=== PATIENT | female | born 1980 | race Caucasian/White ===

== ENCOUNTER 2017-08-22 19:31 | Emergency (ER) | payer OTHER, SELFPAY ==
[2017-08-22 19:32] VITALS: BP 138/72; PULSE 59; RESP 16; TEMP 36.7; O2SAT 100; BMI 39.6
--- NOTE | 2017-08-22 20:59 | US_ITS ---
STUDY: VENOUS DOPPLER ULTRASOUND - LEFT LOWER EXTREMITY REASON FOR EXAM: Female, 37 years old. Swelling TECHNIQUE: Ultrasound evaluation of the deep vein system to include miller-scale imaging and compression was performed. Miller-scale imaging and Doppler sonographic evaluation, including duplex spectral analysis and qualitative color flow sonography, was performed. COMPARISON: None. FINDINGS: Common Femoral Vein: Normal compression, spontaneity and augmentation. Normal color Doppler. Common Femoral Vein/Greater Saphenous Junction: Normal compression. Femoral Proximal: Normal compression. Femoral Middle: Normal compression, spontaneity and augmentation. Normal color Doppler. Femoral Distal: Normal compression. Popliteal Vein: Normal compression, spontaneity and augmentation. Normal color Doppler. Posterior Tibial Vein: Normal compression. Peroneal Vein: Normal compression. US/Venous Duplex Imag/Limited/Uni IMPRESSION: Normal venous Doppler ultrasound of the lower extremity. Electronically Signed: Ronald Jade DO at 21:43 EDT Tel [phone], Service support ,
--- NOTE | 2017-08-22 22:13 | ED.VISSUMM ---
- ER Visit Summary Date of Service: 08/22/17 Chief Complaint: Left lower extremity pain History of Present Illness: The patient is a 37 F presenting with left lower extremity pain. This has been ongoing for the past week. She went to urgent care today and they sent her to the ED to rule out DVT. She states she has had a burning tingling sensation in her left lower extremity. Denies recent injury. No recent travel. No history of DVT/PE. No history of cancer. She did have a varicose vein surgery in March per Dr. Rosen. She denies fever. Denies chest pain or shortness of breath. Denies other complaints. Physical Examination: Vitals are stable. Patient is afebrile. Alert no acute distress. HEENT exam is unremarkable. Neck is supple. Lungs are clear and equal bilaterally. Heart is regular rate and rhythm. Abdomen is soft nontender nondistended. Extremities mild left ankle swelling with tenderness, no pain with range of motion of ankle joint. Normal DP pulse. Mild calf tenderness. No erythema or warmth Skin is warm and dry. No focal neurologic deficit. Remainder of exam is unremarkable. Emergency Department Course and Treatment: Venous Doppler shows no evidence of DVT. She is advised to ice and elevate. Advised to follow-up with primary care physician. Advised return to ED if worsening complaints. Disposition: Discharge home Impression: LLE pain This note was generated with [employer] dictation software. It may contain incorrect words, spelling, and punctuation that were not noted in review of the chart prior to signing ED Disposition - Plan for ED Patient: Chief Complaint: Lower Extremity Injury Referrals: Nir Jimenez [Primary Care Provider] -
--- NOTE | 2017-08-22 22:17 | ED.DEP ---
ED Disposition - Plan for ED Patient: Chief Complaint: Lower Extremity Injury Instructions: ED Muscle Pain Leg Cramps Referrals: Nir Jimenez [Primary Care Provider] - Hernandez Rosen MD [STAFF PHYSICIAN] -
[2017-08-22 22:23] VITALS: BP 127/61; PULSE 76; O2SAT 97
== END 2017-08-22 22:24 | disposition home or self-care (01) ==
LOC: ED 20:57
PROVIDERS: Emergency Provider Emergency Medicine; Family Provider Family Medicine; PCP Family Medicine
DX: M79.662 Pain in left lower leg (principal); R20.2 Paresthesia of skin; M79.89 Other specified soft tissue disorders; Z79.899 Other long term (current) drug therapy
CPT/HCPCS: 93971; 99282

== ENCOUNTER → 2017-10-03 09:02 | Outpatient (CLI) | payer OTHER, SELFPAY ==
--- NOTE | 2017-10-03 09:06 | VDLE_ITS ---
Reason For Study: Swelling RIGHT LEFT CFV is compressible, spontaneous, phasic, FV is compressible, spontaneous, phasic, competent and demonstrates normal competent and demonstrates normal augmentation. augmentation. FV is compressible, spontaneous, phasic, POP V is compressible, spontaneous, phasic, competent and demonstrates normal competent and demonstrates normal augmentation. augmentation. POP V is compressible, spontaneous, phasic, T/P Trunk is compressible. competent and demonstrates normal PTV is compressible. augmentation. LT PerV is compressible. T/P Trunk is compressible. Lt CFV is compressible, spontaneous, phasic PTV is compressible. and Incompetent RT PerV is compressible. Rt SFJ is Competent Lt GSV, Lt SSV, and Lt ASV are occluded s/p EVLA. Rt GSV is Incompetent with reflux greater than 0.5 sec and a diameter of 0.49cm x 0.46cm in the thigh and 0.20cm x 0.18cm in the calf Rt SSV is is Incompetent with reflux greater than 0.5 sec and a diameter of 0.33cm x 0.27cm. Procedure Exam performed in department. A preliminary report was called and/or faxed to Dr. Rosen. Interpretation Summary Deep veins of the lower extremities are bilaterally patent and compressible segmentally. There is no evidence of deep vein thrombosis on either side. Valvular competence appears intact within the proximal deep venous system on the right . The left common femoral vein is incompetent. The left femoral vein and popliteal vein are competent. The right sapheno-femoral junction is competent . The right greater saphenous vein appears segmentally incompetent. The right small saphenous vein is patent and incompetent. The left greater saphenous vein, small saphenous vein, and accessory saphenous vein are occluded, consistent with a prior endothermal ablation procedure. Ordering Physician: Hernandez Rosen Referring Physician: Nir Jimenez Performed By: Yadira Clark, LEXY, RVT
== END ==
PROVIDERS: Family Provider Family Medicine; PCP Family Medicine; Visit Provider Surgery
DX: M79.89 Other specified soft tissue disorders (principal); I87.2 Venous insufficiency (chronic) (peripheral); I83.10 Varicose veins of unspecified lower extremity with inflammation
CPT/HCPCS: 93970

== ENCOUNTER → 2018-12-14 | Outpatient (CLI) | payer BC, SELFPAY ==
[2018-12-19 17:01] LABS: HPV Reflexed? NOT INDICATED
== END | disposition home or self-care (01) ==
LOC: WOBLAB 10:20
PROVIDERS: Family Provider Family Medicine; PCP Family Medicine; Visit Provider Obstetrics & Gynecology
DX: Z12.4 Encounter for screening for malignant neoplasm of cervix (principal)
CPT/HCPCS: 87624; 88175; G0145

== ENCOUNTER 2019-12-19 09:34 | Day surgery (SDC) | payer OTHER, SELFPAY ==
[2019-12-14 08:47] VITALS: BMI 39.6
--- NOTE | 2019-12-14 09:01 | HP_ITS ---
Intake Vital Signs 12/14/19 BMI 39.6 12/14/19 Height 5 ft 6 in 12/14/19 Weight: 230 lb 7 oz 12/14/19 BMI 37.2 12/14/19 BP 109/72 12/14/19 Blood Pressure Location Rt brachial 12/14/19 Position Sitting 12/14/19 Respiration 20 H 12/14/19 Pulse 63 12/14/19 Temp 97.9 F 12/14/19 Temp Source Temporal 12/14/19 Pulse Oximetry (%) 100 12/14/19 Oxygen Delivery Method room air Intake Visit Reasons: Abdominal Pain Chief Complaint: generalized abd pain/ bloating [facility] Required: No Is patient in pain?: Yes Allergies acetaminophen [From Vicodin] Adverse Reaction (Verified 12/14/19 08:46) Other hydrocodone [From Vicodin] Adverse Reaction (Verified 12/14/19 08:46) Other oxycodone [From Percocet] Adverse Reaction (Verified 12/14/19 08:46) Nausea/Vom/Diarrhea Medications Calcium Carbonate [Calcium] 600 mg PO DAILY 08/22/17 [History Confirmed 12/14/19] Cetirizine HCl [Zyrtec] 10 mg PO DAILY 08/22/17 [History Confirmed 12/14/19] Multivitamin [Daily Multiple Vitamin] 1 ea PO DAILY 08/22/17 [History Confirmed 12/14/19] vit C 250 mg-E 200 unit-zinc 40 mg-copper 1 el-fsozyt-knipoy capsule 1 tab PO BID 12/14/19 [History Confirmed 12/14/19] Is last menstrual period known: No Post menopausal: No Patient : No PFSH Medical History Back pain (Acute) Obesity (Acute) Ovarian cyst (Acute) Seasonal allergies (Acute) Surgical History History of section (Acute) History of cholecystectomy (Acute) History of hernia repair (Acute) History of tubal ligation (Acute) Family History Father Diabetes Heart disease Hypertension Mother Heart disease Hypertension Social History (Updated 12/14/19 @ 09:[address] Nir Garcia MD) Smoking Status: Never smoker HPI HPI Surgical H&P: Yes HPI: ELLE DILLARD, is a 39 F who presents to the office today for Evaluation of a epigastric abdominal pain abdominal bloating and nausea. Patient went to [facility] emergency department initially had lower abdominal and lower back pain and subsequently started the second. In 1 month's time. Her work-up included a CAT scan which showed a simple ovarian cyst previous mesh repair previous cholecystectomy really was otherwise negative for any acute pathology within the upper epigastric abdominal area. Patient has had nausea no emesis. She has not noticed having any dark stools or hematochezia. She was given some antinausea medications some Bentyl and a PPI but she has not started her PPI as of yet. She was seen by her SENIOR DRAFTER who obtained an ultrasound which confirmed a simple cyst in the pelvis area but could not explain all the other symptoms that she was having. She presents today for evaluation and treatment. ROS General General: Yes weight change and fatigue; no appetite, colon cancer, breast cancer or weakness HEENT HEENT: No difficulty swallowing, eye injury, eye surgery, swollen glands or hoarseness Breast Breast: No left breast lump, right breast lump, nipple discharge, breast pain, abnormal mammogram, abnormal US or breast enlargement Musc Musculoskeletal: Yes back problems; no arthritis, rheumatoid arthritis, gout or joint pain Cardio Cardiovascular: No murmur, pacemaker, heart disease, atrial fibrillation, high blood pressure, heart attack, heart stent, palpitations, shortness of breat with exertion or chest pain Psych Psychiatric: No depression, anxiety or hearing voices Resp Respiratory: No shortness of breath, No sleep apnea, No cough, No COPD, No asthma, No emphysema, No wheezing Gastro Gastrointestinal: Yes abdominal pain, Yes nausea or vomiting, No diarrhea, No constipation, No blood in stool, No acid reflux, No hemorrhoids, No ulcers, No gallbladder problem, No black,tarry stools Main Hematologic: No blood thinners, No blood disorders, No bleeding, No anemia, No blood clots Neuro Neurologic: No weakness Exam Const General: no acute distress, well developed, well hydrated Orientation: oriented to person, oriented to place, oriented to time [facility] Head: normocephalic, atraumatic Ears: external ears normal Mouth: moist mucous membranes Eyes Sclera: sclerae normal Pupils: normal by confrontation Neck Neck: no lymphadenopathy noted Neck mass: No Thyroid: thyroid normal, symmetrical Chest Chest palpation & inspection: normal inspection of the chest Breast Palpation: No nipple discharge Resp Effort & Inspection: normal respiratory effort Auscultation: clear to auscultation bilaterally Percussion: percussion normal Cardio Rate: regular rate Rhythm: regular rhythm Heart Sounds: no murmurs GI Palpation: soft, no hepatosplenomegaly, no masses, nontender Rectal Exam: other Other: Rectal exam deferred. Extrem General: normal to inspection, no clubbing, cyanosis or edema Assessment & Plan Problems 1. Epigastric abdominal pain R10.13 2. Nausea R11.0 3. Abdominal bloating R14.0 Plan I have discussed the above with the patient. I have offered the patient esophagogastroduodenoscopy for evaluation. I have explained the risks/benefits of the procedure and described the procedure. I have discussed the risks with the patient, including but not limited to: infection, bleeding, perforation of the GI tract requiring emergency surgery, inability to complete the procedure, injury to any internal organs, complications of anesthesia, etc. - the patient understands and agrees to proceed. I have answered all the patient's questions to the patient's satisfaction and the patient has no further questions. The patient has been given instructions for the colon cleansing preparation. Coding Level of Care Code Off vis,new,level 3 Diagnoses Epigastric abdominal pain R10.13 Nausea R11.0 Abdominal bloating R14.0 COVID (Procedure Consent) Procedure Criteria Procedure Criteria: Yes Elective The surgeon/proceduralist and patient have discussed in detail the risk of exposure to and/or potential harm posed by the COVID-19 virus with having a surgery/procedure at this time versus the risk of? delaying the surgery/procedure. It is not possible to know either the risk of delaying the surgery or procedure or chance of getting an infection with perfect accuracy, but a joint decision was made between the patient and the surgeon/proceduralist ?to proceed at this time with the scheduled surgery/procedure as indicated on the consent form. 12/14/19 0902 <Electronically signed by Nir nunes MD> Date _ Nir Garcia MD I have re-examined the patient. There are no clinical changes since date of exam.
[2019-12-19 10:11] VITALS: BP 121/84; PULSE 68; RESP 16; TEMP 37.1; O2SAT 100; BMI 37.0
[2019-12-19 10:21] LABS: Internal QC Validated? YES +Cl - CLEAR BKGD; Pregnancy, Urine Negative Negative
[2019-12-19] MEDS: Lactated Ringers 1,000 ML 100 ML IV (10:27)
--- NOTE | 2019-12-19 10:45 | EGD_PTH ---
PATIENT: ELLE DILLARD LOC: EN U#:[id number] AGE/SX: 39/F ROOM: RE12/19/[address]: Dr. Nir Garcia MD : 1980 BED: DIS: 12/19/2019 SPEC #: [id number] RECD: 12/19/19 12:47 STATUS: CONRADO MARK ANTHONY #: [id number] ARLENE: 12/19/19 10:[address]: Nir Garcia DEPT: SURGICAL PATHOLOGY RECD BY: Eleanor Boyd ENTERED: 12/20/19 09:42 SP TYPE: EGD BIOPSY ANIA DR: Dr. Rony Machado MD Tissues: A - Gastric mucous membrane B - BOWEL BIOPSY Procedures: Surgery Specimen Level IV HEADER OPERATION: E[place] [place] PRE[place]OP DIAGNOSIS: Abdominal pain, epigastric pain, nausea TISSUE SUBMITTED: A - Antrum biopsy for histo and H. pylori, B - Small bowel biopsy MICROSCOPIC DIAGNOSIS A. Antrum biopsy: Mild gastritis. See microscopic description and comment. B. Small bowel, biopsy: A fragment of small intestinal mucosa, no pathologic diagnosis. SJ:bryce 12/21/19 COMMENT A. The results of immunohistochemistry for Helicobacter pylori will be reported separately ([id number]). MICROSCOPIC DESCRIPTION Slides are reviewed. A. The specimen shows fragments of gastric mucosa with chronic inflammatory cell infiltrates in the lamina propria consisting of lymphocytes and plasma cells, consistent with mild chronic gastritis. GROSS DESCRIPTION A - Received in fixative is one container labeled with the patient's name and designated antrum biopsy. The specimen consists of one irregular fragment of light lutz soft tissue that measures 0.7 x 0.2 x 0.1 cm. The specimen is totally submitted in one cassette. B - Received in fixative is one container labeled with the patient's name and designated small bowel biopsy. The specimen consists of one irregular fragment of light lutz soft tissue that measures 0.5 x 0.5 x 0.1 cm. The specimen is totally submitted in one cassette. / AM:bryce 12/20/19 TC:5 CPT: 52562 x2
--- NOTE | 2019-12-19 10:45 | IMM_PTH ---
PATIENT: ELLE DILLARD LOC: EN U#:[id number] AGE/SX: 39/F ROOM: RE12/19/[address]: Dr. Nir Garcia MD : 1980 BED: DIS: 12/19/2019 SPEC #: [id number] RECD: 12/20/19 09:16 STATUS: CONRADO REQ #: [id number] ARLENE: 12/19/19 10:[address]: Nir Garcia DEPT: IMMUNOHISTOCHEMISTRY RECD BY: Dolores Diaz ENTERED: 12/20/19 09:16 SP TYPE: IMMUNO OTHR DR: Dr. Rony Machado MD Tissues: A - Stomach, NOS Procedures: H Pylori (initial) PHYSICIAN & INSTITUTION [place] [address] SPECIMEN INFORMATION: Tissue Source: A - Antrum biopsy Clinical Info: Abdominal pain, epigastric pain, nausea Specimen Number: [id number] CPT code: 05493 METHODOLOGY: Deparaffinized sections of prefer/formalin-fixed tissue or PAP/DQ stained slides are incubated with monoclonal/polyclonal antibodies/oligonucleotide probes. Localization is made via biotin free immunoperoxidase method. Appropriate controls are performed and reacted as expected. Results on target cell population are indicated in the following table: RESULTS: ANTIBODY / CLONE RESULT Block A H Pylori (polyclonal) negative These tests were developed and their performance characteristics determined by [facility]. They may not have been cleared or approved by the U.S. Food and Drug Administration. The FDA has determined that such clearance or approval is not necessary. INTERPRETATION: A. Antrum biopsy: Negative for Helicobacter pylori organisms. SJ:bryce 12/21/19
--- NOTE | 2019-12-19 10:58 | OP.CCLET_ITS ---
12/19/2019 Rony Machado Re : Upper GI endoscopy procedure for Mery Dawson Jeannette This procedure was performed on Thursday, December 19, 2019. My impressions and recommendations are as follows: Impressions : - Normal esophagus. No specimens collected. - Gastritis. Biopsied. - Normal examined duodenum. Biopsied. Recommendations : - Await pathology results. - Repeat upper endoscopy at appointment to be scheduled for surveillance. - Return to my office in 1 week. - Continue present medications. My findings are described in the full procedure note, which is enclosed. If I can be of further assistance, please feel free to contact me at Doctor phone number(s): , Fax: [phone], Work: . Sincerely, MD Nir Evans MD 12/19/2019 10:58:01 AM This report has been signed electronically.
--- NOTE | 2019-12-19 10:58 | OP.EGD_ITS ---
Patient Name: Mery Urbano Procedure Date: 12/19/2019 10:24 AM Date of : 1980 Age: 39 Procedure: Upper GI endoscopy Indications: Epigastric abdominal pain, Abdominal bloating, Nausea Providers: Nir Garcia MD Referring MD: Rony Machado Medicines: See the Anesthesia note for documentation of the administered medications Patient Profile: This is a 39 year old female. Refer to note in patient chart for documentation of history and physical. Complications: No immediate complications. Procedure: Pre-Anesthesia Assessment: - Prior to the procedure, a History and Physical was performed, and patient medications and allergies were reviewed. The patient's tolerance of previous anesthesia was also reviewed. The risks and benefits of the procedure and the sedation options and risks were discussed with the patient. All questions were answered, and informed consent was obtained. Prior Anticoagulants: The patient has taken no previous anticoagulant or antiplatelet agents. ASA Grade Assessment: II - A patient with mild systemic disease. After reviewing the risks and benefits, the patient was deemed in satisfactory condition to undergo the procedure. After obtaining informed consent, the endoscope was passed under direct vision. Throughout the procedure, the patient's blood pressure, pulse, and oxygen saturations were monitored continuously. The Endoscope was introduced through the mouth, and advanced to the second part of duodenum. The upper GI endoscopy was accomplished without difficulty. The patient tolerated the procedure well. Scope In: 10:46:34 AM Scope Out: 10:50:59 AM Total Procedure Duration Time 0 hours 4 minutes 25 seconds Findings: The examined esophagus was normal. No biopsies or other specimens were collected for this exam. Localized minimal inflammation characterized by erythema was found in the prepyloric region of the stomach. Biopsies were taken with a cold forceps for Helicobacter pylori testing. The examined duodenum was normal. Biopsies were taken with a cold forceps for histology. Impression: - Normal esophagus. No specimens collected. - Gastritis. Biopsied. - Normal examined duodenum. Biopsied. Recommendation: - Await pathology results. - Repeat upper endoscopy at appointment to be scheduled for surveillance. - Return to my office in 1 week. - Continue present medications. Procedure Code(s): --- Professional --- 22222, Esophagogastroduodenoscopy, flexible, transoral; with biopsy, single or multiple Diagnosis Code(s): --- Professional --- K29.70, Gastritis, unspecified, without bleeding R10.13, Epigastric pain R14.0, Abdominal distension (gaseous) R11.0, Nausea CPT copyright 2017 [employer]. All rights reserved. The codes documented in this report are preliminary and upon atomic process engineer review may be revised to meet current compliance requirements. MD Nir Evans MD 12/19/2019 10:58:01 AM This report has been signed electronically. Number of Addenda: 0 Note Initiated On: 12/19/2019 10:24 AM
[2019-12-19 11:01] VITALS: BP 118/66; BP 121/84; PULSE 66; RESP 16; TEMP 36.4; O2SAT 100
[2019-12-19 11:05] VITALS: BP 114/72; BP 121/84; PULSE 67; RESP 17; O2SAT 100
[2019-12-19 11:10] VITALS: BP 121/84; BP 92/74; PULSE 64; RESP 16; O2SAT 100
[2019-12-19 11:15] VITALS: BP 113/71; BP 121/84; PULSE 68; RESP 16; TEMP 36.8; O2SAT 100
[2019-12-19 11:52] VITALS: BP 121/84
== END 2019-12-19 11:53 | disposition home or self-care (01) ==
LOC: EN 09:35 → AC 09:38
PROVIDERS: Anesthesiology; PCP Family Medicine; Referring Provider Family Medicine; Visit Provider Surgery
PROC: 0DJ08ZZ Inspection of Upper Intestinal Tract, Via Natural or Artificial Opening Endoscopic (ICD-10-PCS; CPT 43235; principal; 2019-12-19 10:40)
DX: K29.70 Gastritis, unspecified, without bleeding (principal); K21.9 Gastro-esophageal reflux disease without esophagitis; Z11.59 Encounter for screening for other viral diseases; J45.909 Unspecified asthma, uncomplicated; Z87.891 Personal history of nicotine dependence
CPT/HCPCS: 43239; 81025; 87635; 88305; 88342; 94799; J7120; U0003

== ENCOUNTER 2020-05-28 17:05 | Emergency (ER) | payer OTHER, SELFPAY ==
[2020-05-28 17:06] VITALS: BP 146/79; PULSE 72; RESP 14; TEMP 36.6; O2SAT 100; BMI 37.7
[2020-05-28 19:06] VITALS: BP 135/85; PULSE 71; RESP 18; O2SAT 98
[2020-05-28 19:29] LABS: Absolute Lymphocyte Count 2.06 X10^3/uL (0.83-4.51); Absolute Neutrophil Count 4.3 X10^3/uL (2.0-7.7); Bacteria 0 SEEN /hpf (None Seen); Basophil# 0.05 X10^3/uL; Basophil% 0.7 % (0-1); Eosinophil# 0.22 X10^3/uL; Eosinophils% 3.1 % (0-5); Hemoglobin 12.3 g/dL (12.0-15.0); Lymphocyte # 2.06 X10^3/ul (4.0); Lymphocyte % 29.3 % (19-41); Mean Corp Hgb Conc 32.4 g/dL (32-36); Mean Corpuscular Hgb 29.7 pg (27.0-32.0); Mean Corpuscular Volume 91.8 fL (81-99); Mean Platelet Vol. 11.3 fl (6.2-12.0); Monocyte# 0.38 X10^3/uL; Monocyte% 5.4 % (0-10); Mucous, Urine 0 SEEN /hpf (<or=2+); NRBC Flagged by Analyzer 0 % (0-5); Neutrophil % 61.2 % (47-70); Platelet Count 277 K/mm3 (150-450); RBC Distribution Width CV 12.1 % (11.6-14.6); RBC Distribution Width SD 40.7 fl (35.1-43.9); Red Blood Count 4.14 M/mm3 (4.2-5.4)
[2020-05-28 19:32] LABS: Color, Urine Red (Yellow); Glucose, Dipstick Normal (Normal); Ketone-Dipstick 5 mg/dl (Negative); Leukocyte Esterase-Dipstick 500 /ul (Negative); Nitrite-Dipstick Negative (Negative); Occult Blood-Urine 250 /ul (Negative); Protein-Dipstick 100 mg/dl (Negative); Urine Bilirubin Dipstick Negative (Negative); Urine Clarity Sl. Cloudy (Clear); Urine Urobilinogen Normal (Normal); Urine pH 6.5 (5.0 - 8.0)
[2020-05-28 19:35] LABS: Internal QC Validated? YES +Cl - CLEAR BKGD; Pregnancy, Serum, hCG Quali. NEGATIVE Negative
[2020-05-28 19:37] LABS: White Blood Cells 5-10 SEEN /hpf (0-5)
[2020-05-28 19:38] LABS: Red Blood Cells-Urine 25-50 SEEN /hpf (0-5)
[2020-05-28 19:39] LABS: Anion Gap 6 (5-15); BUN 13 mg/dL (7-18); Calcium,Total 8.6 mg/dL (8.5-10.1); Chloride 105 mmol/L (98-107); Creatinine, Serum 0.69 mg/dL (0.55-1.02); EST Glomerular Filtration Rate 100 mL/min (>60); Est Glom Filt Rate - Afr Amer 121 mL/min (>60); Estimated Creatinine Clearance 100.44 ml/min; Glucose 86 mg/dL (74-106); Potassium 3.3 mmol/L (3.5-5.1); Sodium Level 138 mmol/L (136-145)
[2020-05-28 19:40] LABS: Squamous Epithelial Cells - UA 0-5 SEEN /hpf (5-10)
--- NOTE | 2020-05-28 19:43 | ED.DCSUM_ITS ---
History of Present Illness Chief Complaint: Abd Pain Informant: Patient - Abdominal Pain/Flank Pain Onset: Yesterday Context: Sudden Onset Timing: Continuous Quality: Aching Location: RLQ - Migration or radiation Current Severity: Moderate Maximum Severity: Moderate Worsened by: Nothing Relieved by: Nothing - Nausea/Vomiting/Emesis GI Symptom: Nausea. Negative for: Vomiting - Diarrhea/Melena/Hematochezia GI Symptom: - - But seemed to suddenly go more and they seem like normal bowel movements. Negative for: Diarrhea, Melena, Hematochezia Associated Symptoms: Negative for: Dysuria, Frequency, Hematuria, Urgency Narrative: Right lower quadrant pain that she has never had before. She has had ruptured ovarian cyst in the past but they usually present like low back pain only. She has had prior C-sections and an umbilical herniorrhaphy. She has associated anorexia today all day as well as some nausea no vomiting. No fevers or chills. No urinary symptoms. No bright red blood per rectum or melena. - Past Medical History (1) GERD (gastroesophageal reflux disease) Status: Chronic Past Medical History - Allergies and Home Meds Allergies/Adverse Reactions: Allergies acetaminophen [From Vicodin] Adverse Reaction (Verified 05/28/20 17:09) Other DON'T DO GOOD. hydrocodone [From Vicodin] Adverse Reaction (Verified 05/28/20 17:09) Other DON'T DO GOOD. oxycodone [From Percocet] Adverse Reaction (Verified 05/28/20 17:09) Nausea/Vom/Diarrhea Primary Care Physician: Care Physician,No Primary [Primary Care Provider] - Surgical History: herniorrhaphy, - - Smoking Status: Never smoker Review of Systems General: Reports: Malaise - And anorexia. Denies: Chills, Fever, Sweats Eyes: Denies: Visual changes - bilaterally, Diplopia ENT: Denies: Rhinorrhea, Sore throat Cardiovascular: Denies: Chest pain, Palpitations Respiratory: Denies: Dyspnea, Cough, Dyspnea on exertion Gastrointestinal: Reports: Abdominal pain, Nausea. Denies: Vomiting, Diarrhea, Melena, Hematochezia Genitourinary: Denies: Dysuria, Hematuria, Frequency Musculoskeletal: Denies: Back pain, Swelling, Extremity Pain Skin: Denies: Rash, Wounds Neurological: Denies: Headache, Weakness, Numbness Physical Exam Vital Signs/Narrative: Vital Signs Temp Pulse Resp BP Pulse Ox 05/28/20 19:06 71 18 135/85 H 98 05/28/20 17:06 97.9 F 72 14 146/79 H 100 Inital Vital Signs reviewed: Yes General: Well nourished, Well developed, No Acute Distress Head: Normocephalic, Atraumatic Eyes: Perrl, EOMI ENT: Moist mucous membranes, No rhinorrhea Neck: Supple, Nontender Cardiovascular: Regular rate, Regular rhythm, No murmurs Respiratory: No distress, CTA bilaterally, Chest nontender Abdomen: Soft, Nondistended, Normal bowel sounds, Tender - Right lower quadrant mostly around McBurney's point, not distal in pelvis, Psoas sign. Negative for: Guarding, Rebound tenderness, Obturator sign, Rovsig's sign, Huston's sign Back: Nontender, Normal Inspection. Negative for: CVA tenderness Extremities: Nontender, No edema Skin: Normal color, No rash Neurological: Alert, Oriented x3, Cranial nerves II-XII grossly intact, Normal Strength, Normal Sensation, Normal Gait Psychological: Normal affect, Normal Mood Diagnostic/Tx/Re-eval Impressions Abdomen/Pelvis CT 05/28/20 20:25 IMPRESSION: No evidence for small bowel obstruction or acute appendicitis. Postop change status post tubal ligation and cholecystectomy Electronically Signed: Jay Vargas MD at 20:50 EST , Service support , 05/28/20 20:25 CT Abd [Abdomen/Pelvis W IV Cont ONLY] [CT] Stat Laboratory Results 05/28/20 05/28/20 05/28/20 18:15 18:15 18:15 WBC 7.0 RBC 4.14 L Hgb 12.3 Hct 38.0 MCV 91.8 MCH 29.7 MCHC 32.4 RDW Std Deviation 40.7 RDW Coeff of Oscar 12.1 Plt Count 277 MPV 11.3 Immature Gran % (Auto) 0.300 Neut % (Auto) 61.2 Lymph % (Auto) 29.3 [place] % (Auto) 5.4 Eos % (Auto) 3.1 Baso % (Auto) 0.7 Absolute Neuts (auto) 4.3 Absolute Lymphs (auto) 2.06 Nucleated RBC % 0 Sodium 138 Potassium 3.3 L Chloride 105 Carbon Dioxide 27.0 Anion Gap 6 BUN 13 Creatinine 0.69 Estim Creat Clear Calc 100.44 Est GFR (MDRD) Af Amer 121 Est GFR (MDRD) Non-Af 100 BUN/Creatinine Ratio 19.0 Glucose 86 Calcium 8.6 Serum , Qual NEGATIVE Urine Color Urine Clarity Urine pH Ur Specific Kegley Urine Protein Urine Glucose (UA) Urine Ketones Urine Occult Blood Urine Nitrite Urine Bilirubin Urine Urobilinogen Ur Leukocyte Esterase Urine RBC Urine WBC Ur Squamous Epith Cells Urine Bacteria Urine Mucus 05/28/20 18:15 WBC RBC Hgb Hct MCV MCH MCHC RDW Std Deviation RDW Coeff of Oscar Plt Count MPV Immature Gran % (Auto) Neut % (Auto) Lymph % (Auto) [place] % (Auto) Eos % (Auto) Baso % (Auto) Absolute Neuts (auto) Absolute Lymphs (auto) Nucleated RBC % Sodium Potassium Chloride Carbon Dioxide Anion Gap BUN Creatinine Estim Creat Clear Calc Est GFR (MDRD) Af Amer Est GFR (MDRD) Non-Af BUN/Creatinine Ratio Glucose Calcium Serum , Qual Urine Color Red Urine Clarity Sl. Cloudy Urine pH 6.5 Ur Specific Kegley 1.010 Urine Protein 100 H Urine Glucose (UA) Normal Urine Ketones 5 H Urine Occult Blood 250 H Urine Nitrite Negative Urine Bilirubin Negative Urine Urobilinogen Normal Ur Leukocyte Esterase 500 H Urine RBC 25-50 SEEN Urine WBC 5-10 SEEN Ur Squamous Epith Cells 0-5 SEEN Urine Bacteria 0 SEEN Urine Mucus 0 SEEN - Medical Decision Making Work-up shows normal white blood count and CBC, her urine is positive for infection. Given her exam, there was concern for appendicitis, which can also cause pyuria. CT with IV contrast was obtained, it is negative seen a normal appendix. Patient was reassured, she felt a lot better after morphine and Zofran, and we will treat her for urinary tract infection with 1 week of Bactrim. Unknown if that is definitely causing the symptoms or not, erratically she could have an early ascending infection, she certainly does not have pyelonephritis right now, but I will extend her Bactrim out to 7 days for better coverage to see if that helps her pain. For worsening symptoms, I encouraged her to return to the ER. Otherwise follow-up. She is comfortable with that p emmett and I did send a urine culture. ED Disposition - Plan for ED Patient: Disposition: Home or Assisted Living Diagnosis: Urinary tract infection, Right lower quadrant abdominal pain Instructions: ED Bladder Infection, Female (Adult), ED Abdominal Pain Unkn Cause Fem Prescriptions: Smz/Tmp Ds [Bactrim Ds] 1 tab PO BID #14 tab Prescription Printed Referrals: Doctor,Your [STAFF PHYSICIAN] - 3-5 Days if not improving
[2020-05-28] MEDS: 0.9% Normal Saline 1,000 ML 999 ML IV (20:10)
[2020-05-28] MEDS: Ondansetron 4 MG/2 ML Vial IV (20:10)
[2020-05-28] MEDS: Morphine 4 MG/ML Syringe IV (20:10)
--- NOTE | 2020-05-28 20:25 | CT_ITS ---
STUDY: CT ABDOMEN AND PELVIS WITH CONTRAST REASON FOR EXAM: Female, 40 years old. RLQ PAIN WITH INCREASE IN PAIN TODAY. HX OF GB, HERNIA REPAIR AND TUBAL RADIATION DOSAGE (If Supplied By Facility): CTDIvol = ( 16.81 ) mGy, DLP = ( 1047.23 ) mGycm TECHNIQUE: Transaxial images were obtained from the dome of the diaphragm to the symphysis pubis without oral contrast. IV 100mL Isovue-300 was administered. Sagittal and coronal images were reconstructed. Individualized dose optimization techniques were used for this CT. COMPARISON: None. FINDINGS: The visualized lung bases are unremarkable. The visualized portions of the heart are within normal limits. Normal liver. Gallbladder not visualized which may be consistent with prior cholecystectomy although there are no surgical clips present.. Borderline splenomegaly.. Normal pancreas. Normal bilateral adrenal glands. Normal right kidney. Normal left kidney. Normal visualized stomach. Normal small intestine. Normal colon. No evidence for acute appendicitis. Normal abdominal aorta. Normal inferior vena cava. Normal retroperitoneum. Normal urinary bladder. Postop change status post bilateral tubal ligation. Normal abdominal wall. Normal osseous structures. CT/Abdomen/Pelvis W IV Cont ONLY IMPRESSION: No evidence for small bowel obstruction or acute appendicitis. Postop change status post tubal ligation and cholecystectomy Electronically Signed: Jay Vargas MD at 20:50 EST , Service support ,
[2020-05-28 21:00] VITALS: BP 140/66; PULSE 78; RESP 18; O2SAT 98
[2020-05-28] MEDS: Smz/Tmp Ds Tablet 1 TABLET PO (22:29)
== END 2020-05-28 22:32 | disposition home or self-care (01) ==
PROVIDERS: Emergency Provider Emergency Medicine
DX: N39.0 Urinary tract infection, site not specified (principal); R10.31 Right lower quadrant pain; K21.9 Gastro-esophageal reflux disease without esophagitis; Z79.899 Other long term (current) drug therapy
CPT/HCPCS: 74177; 80048; 81001; 84703; 85025; 87086; 87088; 96361; 96374; 96375; 99283; J7030; Q9967; A4216; J2405

== ENCOUNTER 2020-08-11 10:18 | Day surgery (SDC) | payer OTHER, SELFPAY ==
[2020-07-11 15:14] VITALS: BMI 37.1
[2020-08-06 16:01] LABS: Hematocrit 39.2 % (37-47); Mean Corp Hgb Conc 33.2 g/dL (32-36); Mean Corpuscular Hgb 30.4 pg (27.0-32.0); Mean Corpuscular Volume 91.8 fL (81-99); Mean Platelet Vol. 10.7 fl (6.2-12.0); Platelet Count 296 K/mm3 (150-450); RBC Distribution Width CV 11.9 % (11.6-14.6); RBC Distribution Width SD 39.7 fl (35.1-43.9); Red Blood Count 4.27 M/mm3 (4.2-5.4); White Blood Count 7.4 K/mm3 (4.4-11.0)
[2020-08-06 16:20] LABS: International Normalized Ratio 1.1; Partial Thromboplast Time 28.5 Seconds (24.1-36.2); Prothrombin Time (Protime)PT. 13.5 SECONDS (11.7-14.9)
[2020-08-06 16:47] LABS: Creatinine, Serum 0.78 mg/dL (0.55-1.02); EST Glomerular Filtration Rate 87 mL/min (>60); Est Glom Filt Rate - Afr Amer 105 mL/min (>60)
--- NOTE | 2020-08-10 20:31 | PCM.HP.BLA ---
History and Physical Date of Admission: 08/11/20 Surgical History and Physical Mery Urbano, a 40 year old female 3 1 1 0 3, presents for L/S RSO, APPY per Izabella/Kobi on August 11, 2020 at 12:45. -- Cyclic RLQ Pain and Severe Bloating; Endometriosis -- Still having sever bloating and pelvic pain prior to and during cycles. Cycles are regular and monthly now. Were not prior to medication tx. Abdoman distended and firm. Has umbilical mesh in place. MEDICATIONS HISTORY: Current medications prescribed by our practice are: 1. Prometrium 200 mg capsule, One pill by mouth once a day at hs for 10 days monthly to start period Patient is also takin. Zyrtec, 1 po qd 2. Calcium w/Vit. D one daily 3. multivitamin tablet, 1 tab po daily 4. PreserVision AREDS-2 250 mg-200 unit-40 mg-1 mg capsule, One pill by mouth twice a day 5. omeprazole 40 mg capsule,delayed release, daily ALLERGIES: NKA, vicodin, Sensitive, does not like it, Vicodin, Severe nausea & vomiting, Percocet and Severe nausea & vomiting Infections - Chicken pox, yeast inf and Bronchitis Illnesses - seasonal allergies and asthma Accidents - no injuries of consequence Hospitalizations - see surgery and Childbirth SAB and 2nd son 1 day of age; Review of Systems: SOCIAL HISTORY: Alcohol Use - denies drinking Smoking - used to smoke but quit and quit in 2000 after 4 years Diet - gluten free Lifestyle - moderate stress lifestyle and Exercise - none Seat Belt Use - always Employer - [employer] 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 Paternal history of Alzheimer's. Sibling(s): Sister's child born w/Cleft Palate, Club. Mother: Hypertension. Maternal Grandfather: Hypertension. Paternal Grandfather: Parkinson's disease. MENSTRUAL HISTORY: LMP Known?- DefiniteAmount/Duration - 4-6 days, Regularity - Irregular, Frequency - monthly days, LMP - 08/04/20, Age Onset Menarche - 11 PAST PREGNANCIES: Total Pregnancies - 5; Full Term Pregnancies - 3; Premature - 1; Abortions, Induced - 0; Abortions, Spontaneous - 1; Ectopics - 0; Multiple Births - 0; Living Children - 3 SURGICAL HISTORY: 1. FX LEFT WRIST ---SURGICAL REPAIR 1ST GRADE ; - 2. 12/16/2006 D and C ; Armand Acevedo M.D. - SAB 3. Primary C/S - 08/21/07 - Dr. Kennedy ; - 4. 08/15/2009 ; Armand Acevedo M.D. - Repeat . 06/16/2012 cholecystectomy ; - 6. 03/03/2012 tubal ; - 7. 03/03/2012 ; Armand Acevedo M.D. - PHYSICAL EXAM BP- 118/70 Sitting, Right arm, large cuff Weight- 241.06735 lbs Height- 65.75 inch BMI:39.28 CONSTITUTIONAL - NAD, well nourished, and well developed ABDOMEN - distended but with bowel sounds; pain to deep palpation RLQ and about umbilicus where mesh placed NEUROLOGICAL - Cranial nerves II-XII grossly intact PSYCHIATRIC - A and O to time, place, person, mood and affect External Genital Vagina - non-tender without lesions Urethra/Urethral Meatus - non-tender Bladder - non-tender Vagina - vaginal higgins are pink and moist without loss of rugae and no evidence of atropy Cervix - without cervical motion tenderness and has normal size and features without evident lesions Uterus - multiparous size 6 cm & wt 75-125 g Adnexa - clear without masses or tenderness and increased tenderness right adnexa ASSESSMENT/PLAN: 1. Abdominal Distension (gaseous), Abdominal Pain,RLQ and Endometriosis Unspec Discussed options for treatment and pain and bloatiness obviously cyclic now that she is taking cyclic prometrium. Given her known history of endometriosis this is likely recurrence of endometriosis. Bloatiness may also be due to adhesions from umbilical mesh but this does not explain the cyclic nature or that it is severe in the RLQ. Upper GI negative. Multiple u/s's essentially negative. Given this, will proceed with L/S RSO and appy. Discussed RBAs and possibility that pain will relocate to the left and further surgery may be needed. All questions answered.
[2020-08-11] VITALS (11 sets, daily range): BP systolic 100–134; BP diastolic 57–82; PULSE 56–76; RESP 16; TEMP 36.2–36.8; O2SAT 93–99; BMI 38.7
[2020-08-11] MEDS: Lactated Ringers 1,000 ML 100 ML IV ×2 (11:14→13:53)
--- NOTE | 2020-08-11 11:41 | PCM.OPRPT ---
Report of Operation Date of Procedure: 08/11/20 Pre-Operative Diagnosis: Right Lower Quadrant Pain, Endometriosis Post-Operative Diagnosis: Right Lower Quadrant Pain, Endometriosis, Adhesions Surgery/Procedure Performed:: Diagnostic Laparoscopy, Right Salpingo-Oophorectomy, Appendectomy, Lysis of Adhesions Description of Surgical Findings:: Normal-appearing right and left fallopian tubes and ovaries, 8 cm uterus. Evidence of prior tubal occlusions. Adhesions of omentum to anterior abdominal wall at site of previous hernia repair mesh. Normal-appearing appendix. rail gang supervisor: Yulia Bower Type of Anesthesia:: General - Endotracheal Anesthesiologist: Arianna Gardiner Specimen's removed: Right fallopian tube and ovary, appendix Drains: None Estimated Blood Loss (mL): Minimal Fluids Replaced: Crystalloid Description of Procedure: Surgeon: Armand Acevedo MD, FACOG Co-Surgeon: Kamaljit Peace MD, FACS Indications: This is a 40 year old patient who has had problems with cyclic right lower quadrant pain which is nearly incapacitating. She had a previous hernia repair with mesh at the umbilicus. She was previously noted to have endometriosis. Given that her pain is cyclic and is concentrated on the right it was decided to proceed with the above surgery. She understands that this may not relieve her of the pain and symptoms that she has been having and that further surgery may be necessary. All questions were answered we consider the patient well-informed. Procedure: The patient was taken to the operating room where after induction of general anesthesia, she was placed in the dorsolithotomy position and prepped and draped in the usual sterile fashion. The bladder was drained of approximately 250 cc of clear yellow urine with a catheter. Anterior cervix was grasped with the tenaculum. Conn cannula was placed and attention was turned toward the laparoscopic portion of the procedure. Dr. Peace inserted a Doshi approximately 2 cm above the umbilicus, and, after CO2 insufflation, performed a lysis of the umbilical adhesions and did a laparoscopic appendectomy which is dictated separately. A 5 mm bladeless trocar was introduced suprapubically and another approximately 10 cm left lateral to the umbilicus per Dr. Peace. The above findings were noted. An Enseal device was used to divide the infundibulopelvic right ligament to the level of the uterus. The right tube and ovary were then removed through the Doshi port after placing them in an Endobag. Laparoscopic instruments and as much CO2 gas as possible was removed and incisions were closed per Dr. Peace which is dictated separately. Vaginal instruments were removed. Approximately 16 cc of half percent ropivacaine was injected in the course of the surgery. The patient tolerated the procedure well was taken to recovery room in satisfactory condition and sponge instrument and needle counts were all reportedly correct. Estimated blood loss for the case was minimal. There were no apparent complications of the surgery. Specimens to pathology was right fallopian tube and ovary and appendix. Grafts/Implants Used: None - Complications None - Admit VTE Documentation VTE Present on Admission: Yes VTE Mechan Device Prophylaxis: SCD's
--- NOTE | 2020-08-11 11:43 | PCM.HP.BLA ---
History and Physical Date of Admission: 08/11/20 Intake Vital Signs 07/11/20 Height 5 ft 6 in 07/11/20 Weight: 230 lb 07/11/20 BMI 37.1 07/11/20 BP 113/77 07/11/20 Blood Pressure Location Rt brachial 07/11/20 Position Sitting 07/11/20 Respiration 18 Intake Visit Reasons: APPY, COMBINED SURGERY Chief Complaint: discuss appy Distillation Operator Required: No Is patient in pain?: No Allergies acetaminophen [From Vicodin] Adverse Reaction (Verified 07/11/20 15:15) Other hydrocodone [From Vicodin] Adverse Reaction (Verified 07/11/20 15:15) Other oxycodone [From Percocet] Adverse Reaction (Verified 07/11/20 15:15) Nausea/Vom/Diarrhea Medications Calcium Carbonate [Calcium] 600 mg PO DAILY 08/22/17 [History Confirmed 07/11/20] Cetirizine HCl [Zyrtec] 10 mg PO DAILY 08/22/17 [History Confirmed 07/11/20] Multivitamin [Daily Multiple Vitamin] 1 ea PO DAILY 08/22/17 [History Confirmed 07/11/20] Albuterol IH (ProAir) [Proair Hfa (SP)Vent Pts] 1 - 2 puff INHALATION Q6H PRN PRN 12/14/19 [History Confirmed 07/11/20] Budesonide/Formoterol 160/4.5 [Symbicort 160/4.5 Mcg Inhaler (SP)] 2 puff INHALATION BID PRN 12/14/19 [History Confirmed 07/11/20] vit C 250 mg-E 200 unit-zinc 40 mg-copper 1 jg-[id number]-gobsts capsule 1 tab PO BID 12/14/19 [History Confirmed 07/11/20] Omeprazole 40 mg PO DAILY 05/28/20 [History Confirmed 07/11/20] Progesterone, Micronized [Progesterone] 200 mg PO QHS 05/28/20 [History Confirmed 07/11/20] Smz/Tmp Ds [Bactrim Ds] 1 tab PO BID #14 tab 05/28/20 [Rx Confirmed 07/11/20] PFSH Medical History Back pain (Acute) Obesity (Acute) Ovarian cyst (Acute) Seasonal allergies (Acute) Surgical History History of section (Acute) History of cholecystectomy (Acute) History of hernia repair (Acute) History of tubal ligation (Acute) Family History Father Diabetes Heart disease Hypertension Mother Heart disease Hypertension Social History (Updated 07/11/20 @ 15:[address] Kamaljit Peace MD) Smoking Status: Never smoker HPI HPI HPI: ELLE DILLARD, is a 40 F who presents to the office today for HPI HPI HPI: ELLE DILLARD, is a 40 F who presents to the office today for Right lower quadrant pain. The patient has been having several bouts of right lower quadrant pain and bloating. She is also having pain at her umbilicus. She has a history of umbilical hernia repair. The patient is scheduled for exploratory laparoscopy and she was referred for appendectomy at the time of surgery. She was in the emergency room recently thinking she had appendicitis and imaging was negative. ROS General General: No weight change or fatigue Cardio Cardiovascular: No murmur, pacemaker, heart disease, atrial fibrillation, high blood pressure, heart attack, heart stent, palpitations, shortness of breat with exertion or chest pain Psych Psychiatric: No depression or anxiety Resp Respiratory: No shortness of breath, No sleep apnea, No cough, No COPD, No asthma, No emphysema, No wheezing Gastro Gastrointestinal: Yes abdominal pain, No nausea or vomiting, No diarrhea, Yes constipation, No blood in stool, Yes acid reflux, No hemorrhoids, No ulcers, No gallbladder problem, No black,tarry stools Main Hematologic: No blood thinners Exam Const General: cooperative Orientation: alert, oriented x3 Resp Effort & Inspection: normal respiratory effort Auscultation: clear to auscultation bilaterally Cardio Rate: regular rate Rhythm: regular rhythm Heart Sounds: no murmurs GI Inspection: non-distended Palpation: soft, nontender Assessment & Plan Problems 1. RLQ abdominal pain R10.31 Plan The patient is having right lower quadrant pain and is scheduled to undergo exploratory laparoscopy with right oophorectomy by Dr. Acevedo. They discussed appendectomy at the time of the procedure. The patient was recently in the emergency room thinking she had appendicitis but they believe it may be gynecologic in nature. To remove this from the differential in the future she would like appendectomy at the time of surgery. I discussed this with her as well as the risks of bleeding, infection, perforation of the bowel. The patient understands the risks and is well to proceed. The patient also has some pain at her umbilicus and with palpation I do feel some sharp areas and I believe that the mesh may be misplaced. I will inspect this at the time of surgery but I informed her that I cannot revise her hernia at the time as this will be a clean contaminated case and I will be unable to place supplemental mesh. Patient understands and is willing to proceed with surgery. Kamaljit Peace MD Pager: [facility] [address] [place] [address] [address] [place] [address] Office: I have seen and reexamined the patient and there are no changes.
[2020-08-11] MEDS: Cefotetan 2 GM in 0.9% NS 100 ML IV (11:47)
--- NOTE | 2020-08-11 12:05 | OV_PTH ---
PATIENT: ELLE DILLARD [place] [facility] [id number] AGE/SX: 40/F ROOM: RE08/11/[address]: Dr. Armand Acevedo MD : 1980 BED: DIS: 08/11/2020 SPEC #: [id number] RECD: 08/11/20 13:38 STATUS: CONRADO REMylene #: [id number] ARLENE: 08/11/20 12:[address]: Armand Acevedo DEPT: SURGICAL PATHOLOGY RECD BY: Juany Gilmore ENTERED: 08/12/20 07:40 SP TYPE: OVARY OTHR DR: MD Dr. Tim Bey MD Tissues: A - Ovary, NOS B - Appendix, NOS Procedures: Surgery Specimen Level III Surgery Specimen Level IV HEADER OPERATION: Laparoscopic salpingo-oophorectomy; laparoscopic appendectomy PRE-OP DIAGNOSIS: Abdominal distention (gaseous); abdominal pain RLQ; endometriosis TISSUE SUBMITTED: A - Right tube and ovary, B - Appendix MICROSCOPIC DIAGNOSIS A. Right tube and ovary, salpingo-oophorectomy: Right fallopian tube - no pathologic diagnosis. Right ovary - physiologic follicular cysts and corpus lutea. Paratubal cyst. B. Appendix, appendectomy: Appendix, no pathologic diagnosis. See comment. SJ:bryce 08/13/2020 COMMENT B. Entire appendix is examined. Changes consistent with endometriosis are not seen in the sections examined. Clinical correlation and appropriate follow up are necessary. MICROSCOPIC DESCRIPTION Slides are reviewed. GROSS DESCRIPTION A - Received in fixative is one container labeled with the patient's name and designated right tube and ovary. The specimen consists of fallopian tube and ovary. The fallopian tube measures 6.5 cm in length and 0.5 cm in diameter. The fimbrial end is identified. The fallopian tube appears to be interrupted in the proximal portion consistent with previous tubal ligation. A paratubal cyst is noted measuring 0.5 cm in greatest dimension. Sections reveal unremarkable cut surfaces. The paratubal cyst is filled with clear fluid. The ovary measures 4 x 2.5 x 1 cm and weights 5.3 gm. The external surface appears unremarkable. Sections reveal a hemorrhagic cyst and a few corpus luteum. The largest cyst measures 0.5 cm in greatest dimension. Engagement Specialist sections are submitted in three cassettes as follows: 1??fallopian tube and paratubal cyst, 2 & 3 - ovary. B - Received in fixative is one container labeled with the patient's name and designated appendix. The specimen consists of an appendix measuring 3.5 cm in length and up to 0.6 cm in diameter. The attached periappendiceal adipose tissue measures up to 2 cm in width. The serosal surface appears unremarkable. The lumen is pinpoint. No fecalith is identified. The entire appendix is submitted in two cassettes as follows: 1 - tip and proximal portion, 2 - rest of the appendix. / SJ:rg 08/12/20 TC: 4 CPT: 04411, 77116
[2020-08-11] MEDS: Ropivacaine 0.5% 30 ML Vial (12:07)
--- NOTE | 2020-08-11 13:36 | OP.PCM_ITS ---
Problem List (1) RLQ abdominal pain Status: Acute Report of Operation Date of Procedure: 08/11/20 Pre-Operative Diagnosis: Right lower quadrant pain Post-Operative Diagnosis: 1. Right lower quadrant pain. 2. Recurrence of umbilical hernia Surgery/Procedure Performed:: Laparoscopic appendectomy with takedown of adhesions Specimen's removed: Appendix Description of Procedure: Patient was brought back to the operating room and general anesthesia was induced. The abdomen was prepped and draped in usual sterile fashion. A midline incision was made superior to her prior hernia repair and deepened to the fascia which was elevated and incised. A port was placed into the abdomen and it was insufflated to 15 mmHg. The abdomen was inspected. There were adhe sions to her prior umbilical hernia repair and there was apparent intraperitoneal mesh. 5 mm ports were placed under direct visualization in the suprapubic space as well as the left lower quadrant. Enseal was used to take down the adhesions at the attachments to the mass. These were inspected and there was no apparent injury to bowel. The prior umbilical hernia was inspected and there appears that the mesh was not fully overlapping with all of the fascial edges. There was still a small defect at the umbilical hernia. Next the appendix was identified and elevated. The Enseal was used to take down the mesoappendix until the base of the appendix was reached. 45 mm stapler was used to come across the base of the appendix. The appendix was placed into an Endo Catch bag and removed. Next Dr. Acevedo performed a right salpingo-oophorectomy as scheduled. Please see his operative report for his portion of the procedure. After Dr. Acevedo's portion was completed, The appendix staple line was inspected as well as the adhesions to the mesh that were taken down. They all appeared intact and the ports were removed under direct visualization. 0 Vicryl in a [id number] fashion was used to close the midline fascia. All of the skin incisions were injected with local anesthetic and closed with interrupted 4-0 Monocryl suture as well as Steri-Strips and bandages. Patient was then awoken and taken to PACU in stable condition. - Admit VTE Documentation VTE Mechan Device Prophylaxis: SCD's
--- NOTE | 2020-08-11 14:56 | DCINST_ITS ---
Discharge Diet: No Restrictions - Increase fluid intake for the next 48 hours. Discharge Activity: Return to Normal Activity, May not drive while taking narcotic pain medications., May Shower, May Take a Tub Bath May resume sexual activity in: 3 weeks Additional Activity Instructions:: Ambulate often the next week after surgery. Nothing in the vagina for 5 days. Call your doctor if your incision/area has: Continuous Slow Oozing, Sudden Increased Bleeding, Increased Pain/ Swelling, Increased Redness, Foul Smelling Discharge Call your doctor if you observe: Fever of 101 or Higher, Inability to urinate, Inability to have a bowel movement, Using more than one pad per hour Allergies/Adverse Reactions: Allergies hydrocodone [From Vicodin] Adverse Reaction (Verified 08/11/20 10:39) Other DON'T DO GOOD. oxycodone [From Percocet] Adverse Reaction (Verified 08/11/20 10:39) Nausea/Vom/Diarrhea sulfamethoxazole [From Bactrim] Adverse Reaction (Verified 08/11/20 10:39) Other tongue turned black trimethoprim [From Bactrim] Adverse Reaction (Verified 08/11/20 10:39) Other tongue turned black Medications to take at Discharge Calcium Carbonate [Calcium] 600 mg PO QHS 08/22/17 Cetirizine HCl [Zyrtec] 10 mg PO QHS 08/22/17 Multivitamin [Daily Multiple Vitamin] 1 ea PO QHS 08/22/17 Albuterol IH (ProAir) [Proair Hfa (SP)Vent Pts] 1 - 2 puff INHALATION Q6H PRN PRN 12/14/19 Omeprazole 40 mg PO QHS 05/28/20 Progesterone, Micronized [Progesterone] 200 mg PO QHS 05/28/20 Areds Two 1 tablet PO BID 08/04/20 Lactobacillus Combination No.4 [Probiotic] 1 each PO DAILY 08/04/20 Vitamin C 1,000 mg PO QHS 08/04/20 Oxycodone [Oxyir] 5 mg PO Q6H PRN PRN 7 Days #10 tab 08/11/20 The following prescriptions were given: Oxycodone [Oxyir] 5 mg PO Q6H PRN PRN 7 Days #10 tab PRN Reason: Pain Score 6-10 Transmission Status: Received by [facility] Primary Care Physician: Tim Huggins MD [Primary Care Provider] - Test Results: Test results from this visit will be discussed in further detail at your follow- up appointment, if applicable. Please Follow Up With: Armand Acevedo MD - [phone] When: 2-3 weeks
[2020-08-11] MEDS: Acetaminophen/Codeine #3 Tablet PO (15:24)
== END 2020-08-11 18:37 | disposition home or self-care (01) ==
LOC: SDC 10:19 → AC 10:20
PROVIDERS: Surgery; PCP Family Medicine; Referring Provider Obstetrics & Gynecology; Visit Provider Obstetrics & Gynecology
PROC: (CPT 58720; principal; 2020-08-11 11:50)
PROC: 0DTJ4ZZ Resection of Appendix, Percutaneous Endoscopic Approach (ICD-10-PCS; CPT 44970; 2020-08-11 11:50)
DX: K42.9 Umbilical hernia without obstruction or gangrene (principal); N80.9 Endometriosis, unspecified; N83.8 Other noninflammatory disorders of ovary, fallopian tube and broad ligament; N83.01 Follicular cyst of right ovary; N83.11 Corpus luteum cyst of right ovary; R14.0 Abdominal distension (gaseous); J45.909 Unspecified asthma, uncomplicated; E66.9 Obesity, unspecified; Z79.899 Other long term (current) drug therapy; Z87.891 Personal history of nicotine dependence; Z68.38 Body mass index [BMI] 38.0-38.9, adult
CPT/HCPCS: 00940; 44970; 58661; 36415; 82565; 85027; 85610; 85730; 86850; 86900; 86901; 87426; 88302; 88304; 88305; C9803; J7120; A4216; C1760; J2405

== ENCOUNTER → 2021-05-05 | Outpatient (CLI) | payer OTHER, SELFPAY ==
[2021-05-12 14:07] LABS: HPV Reflexed? NOT INDICATED
== END | disposition home or self-care (01) ==
LOC: LABSPEC 16:17
PROVIDERS: PCP Family Medicine; Visit Provider Obstetrics & Gynecology
DX: Z12.4 Encounter for screening for malignant neoplasm of cervix (principal)
CPT/HCPCS: 88175; G0145

== ENCOUNTER → 2021-05-11 12:31 | Outpatient (CLI) | payer OTHER, SELFPAY ==
--- NOTE | 2021-05-11 12:35 | BI_ITS ---
MAMMOGRAPHY - BILATERAL SCREENING 3-D TOMOSYNTHESIS REASON FOR EXAM: Female, 41 years old. SCREENING PERTINENT HISTORY: No significant family history. TECHNIQUE: 2-D mammograms and 3-D Tomosynthesis of the breast (s) were performed. CAD was performed. COMPARISON: 11/22/2014 FINDINGS: The breast composition is heterogeneously dense that can obscure small breast masses. Scattered benign calcifications are seen. No dense spiculated masses or suspicious microcalcifications are identified. No architectural distortion is identified. There is no skin thickening or retraction. There has been no significant change since the prior study. BI/SCRN MAMM (CAD)W/ALECIA BILAT IMPRESSION: No mammographic signs of malignancy. Routine yearly mammograms recommended. ASSESSMENT CATEGORY: BIRADS Category 1: Negative. A letter regarding these results will be sent to the patient by the facility within 30 days. FOLLOW UP RECOMMENDATION: Yearly follow up mammogram recommended. (A) Approximately 10% of breast cancers are not detected by mammography. A normal mammogram should not delay biopsy of a clinically suspicious abnormality. Electronically Signed: Hector Sosa MD at 13:55 EST Tel , Service support ,
== END ==
PROVIDERS: PCP Family Medicine; Visit Provider Obstetrics & Gynecology
DX: Z12.31 Encounter for screening mammogram for malignant neoplasm of breast (principal)
CPT/HCPCS: 77063; 77067

== ENCOUNTER → 2022-05-31 | Outpatient (CLI) | payer OTHER, SELFPAY ==
[2022-06-04 12:52] LABS: HPV APTIMA, High Risk Negative (Negative)
== END | disposition home or self-care (01) ==
LOC: LABSPEC 16:34
PROVIDERS: PCP Family Medicine; Referring Provider Nurse Practitioner Women's Health; Visit Provider Nurse Practitioner Women's Health
DX: Z12.4 Encounter for screening for malignant neoplasm of cervix (principal)
CPT/HCPCS: 87624; 88175; G0145

== ENCOUNTER → 2022-10-15 | Outpatient (CLI) | payer OTHER, SELFPAY ==
[2022-10-15 11:23] LABS: Estradiol 37.3 pg/mL; Follicle Stimulating Hormone 19.7 mIU/mL
== END | disposition home or self-care (01) ==
LOC: PAVLAB 10:31
PROVIDERS: PCP Family Medicine; Referring Provider Nurse Practitioner Women's Health; Visit Provider Nurse Practitioner Women's Health
DX: N92.0 Excessive and frequent menstruation with regular cycle (principal)
CPT/HCPCS: 36415; 82670; 83001

== ENCOUNTER → 2022-11-19 | Outpatient (CLI) | payer OTHER, SELFPAY ==
--- NOTE | 2022-11-19 08:11 | BI_ITS ---
MAMMOGRAPHY - BILATERAL SCREENING REASON FOR EXAM: Female, 42 years old. Routine annual screening examination. PERTINENT HISTORY: Non-contributory. TECHNIQUE: Digital bilateral breast alecia (3D mammographic acquisition) in the CC and MLO projections. 2-D mediolateral oblique (MLO) and craniocaudad (CC) views of both breasts were obtained. CAD: Full Field Digital Mammography with Computer Added Detection was performed. COMPARISON: Comparison is made with prior study dated May 11, 2021 and November 22, 2014. FINDINGS: Breast Composition: The breasts are heterogeneously dense, which may obscure small masses. There are no dominant masses or suspicious calcifications. Stable small benign appearing bilateral axillary nodes. No other significant abnormalities are identified. There has been no significant change since the prior study. BI/SCRN MAMM (CAD)W/ALECIA BILAT IMPRESSION: Stable bilateral screening mammogram. Yearly follow-up mammogram recommended. (A) ASSESSMENT CATEGORY: BIRADS Category 2: Benign. A letter regarding these results will be sent to the patient by the facility within 30 days. Approximately 10% of breast cancers are not detected by mammography. A normal mammogram should not delay biopsy of a clinically suspicious abnormality. [id number] Electronically Signed: Pérez Garcia MD at 10:06 EDT ,
== END | disposition home or self-care (01) ==
LOC: OPBI 08:10
PROVIDERS: PCP Family Medicine; Referring Provider Nurse Practitioner Women's Health; Visit Provider Nurse Practitioner Women's Health
DX: Z12.31 Encounter for screening mammogram for malignant neoplasm of breast (principal)
CPT/HCPCS: 77063; 77067

== ENCOUNTER → 2024-02-01 | Outpatient (CLI) | payer OTHER, SELFPAY ==
--- NOTE | 2024-02-01 10:00 | BI_ITS ---
MAMMOGRAPHY - BILATERAL SCREENING REASON FOR EXAM: Female, 43 years old. Routine annual screening examination. PERTINENT HISTORY: Non-contributory. TECHNIQUE: Digital bilateral breast alecia (3D mammographic acquisition) in the CC and MLO projections. 2-D mediolateral oblique (MLO) and craniocaudad (CC) views of both breasts were obtained. CAD: Full Field Digital Mammography with Computer Added Detection was performed. COMPARISON: Comparison is made with prior study dated November 19, 2022 and May 11, 2021. FINDINGS: Breast Composition: The breasts are heterogeneously dense, which may obscure small masses. There are no dominant masses or suspicious calcifications. Stable small benign-appearing bilateral axillary lymph nodes. No other significant abnormalities are identified. There has been no significant change since the prior study. BI/SCRN MAMM (CAD)W/ALECIA BILAT IMPRESSION: Stable bilateral screening mammogram. Yearly follow-up mammogram recommended. (A) ASSESSMENT CATEGORY: BIRADS Category 2: Benign. A letter regarding these results will be sent to the patient by the facility within 30 days. Approximately 10% of breast cancers are not detected by mammography. A normal mammogram should not delay biopsy of a clinically suspicious abnormality. [id number] Electronically Signed: Pérez Garcia MD at 10:54 EDT ,
== END | disposition home or self-care (01) ==
LOC: OPBI 10:00
PROVIDERS: PCP Family Medicine; Referring Provider Nurse Practitioner Women's Health; Visit Provider Nurse Practitioner Women's Health
DX: Z12.31 Encounter for screening mammogram for malignant neoplasm of breast (principal)
CPT/HCPCS: 77063; 77067

== ENCOUNTER → 2025-04-23 | Outpatient (CLI) | payer OTHER, SELFPAY | END | disposition home or self-care (01) | LOC: LABSPEC 16:06 | PROVIDERS: PCP Family Medicine; Visit Provider Nurse Practitioner Women's Health | DX: N89.8 Other specified noninflammatory disorders of vagina (principal) | CPT/HCPCS: 87070; 87205 ==

== ENCOUNTER → 2025-05-15 | Outpatient (CLI) | payer OTHER, SELFPAY ==
--- NOTE | 2025-05-15 12:45 | BI_ITS ---
EXAM: SCRN MAMM (CAD)W/ALECIA BILAT DATE: 05/15/2025 CLINICAL HISTORY: F, Age 45 y/o , SCREEN TECHNIQUE: Procedure Code: [id number] Modality: MG Procedure: SCRN MAMM (CAD)W/ALECIA BILAT COMPARISON: Prior exam(s) were compared FINDINGS: TISSUE DENSITY: The breasts are heterogeneously dense, which may obscure small masses. Bilateral Breast Mammographic Findings: No significant masses, calcifications or other abnormalities are identified. BI/SCRN MAMM (CAD)W/ALECIA BILAT IMPRESSION: No mammographic evidence of malignancy. OVERALL FINAL ASSESSMENT BI-RADS 1: NEGATIVE. RECOMMENDATION: Routine annual follow-up in 1 Year Additional Recommendation none A letter with findings and recommendations will be mailed to the patient. Reading Location: [id number]
== END | disposition home or self-care (01) ==
LOC: OPBI 12:39
PROVIDERS: PCP Family Medicine; Referring Provider Nurse Practitioner Women's Health; Visit Provider Nurse Practitioner Women's Health
DX: Z12.31 Encounter for screening mammogram for malignant neoplasm of breast (principal)
CPT/HCPCS: 77063; 77067